=== PATIENT | female | born 1975 | race Two or more races ===

== ENCOUNTER 2022-04-17 10:45 | Inpatient (IN) | payer OTHER ==
[2022-04-17] MEDS ORDERED: ACIDO FOLICO (12:47)
[2022-04-17] MEDS ORDERED: SPRINTEC 28 DA1 EACH PO (12:48)
[2022-04-17] MEDS ORDERED: VITAMINA B12 (12:48)
[2022-04-24] MEDS ORDERED: FOLIC ACID0.8 MG (14:21)
[2022-04-24] MEDS ORDERED: VITAMIN B-121000 MC4 (14:21)
[2022-04-24] MEDS ORDERED: FAMOTIDINE20 MG (14:31)
[2022-04-24] MEDS ORDERED: SUCRALFATE1 GM (14:31)
[2022-04-25] MEDS ORDERED: NEURONTIN300 MG PO (09:56)
[2022-04-25] MEDS ORDERED: INTEGRA F CAPS1 EACH PO (09:56)
[2022-04-25] MEDS ORDERED: ACETAMINOPHEN500 M2 PO (09:56)
== END 2022-04-25 13:10 | disposition home or self-care (01) | DRG 331 ==
LOC: SURG 04-22 05:30 → O/R 04-22 05:30 → SURG 04-22 07:00
PROVIDERS: ADMIT Surgery; ATTEND Surgery
PROC: 0DBP4ZZ Excision of Rectum, Percutaneous Endoscopic Approach (ICD-10-PCS; 2022-04-22)
PROC: 0DTN4ZZ Resection of Sigmoid Colon, Percutaneous Endoscopic Approach (ICD-10-PCS; principal; 2022-04-22 07:00)
DX: K57.32 Diverticulitis of large intestine without perforation or abscess without bleeding (principal); R10.32 Left lower quadrant pain; D50.9 Iron deficiency anemia, unspecified; Z20.822 Contact with and (suspected) exposure to COVID-19